=== PATIENT | male | born 1950 | race Caucasian/White ===

== ENCOUNTER 2016-05-14 05:36 | Day surgery (SDC) | payer MEDICARE, OTHER ==
[~2016-05-14] VITALS: Ht 170.2 cm; Wt 85.1 kg
[2016-05-14] VITALS (9 sets, daily range): BP systolic 112–152; BP diastolic 66–82; PULSE 51–80; RESP 12–17; O2SAT 95–99
[2016-05-14] MEDS: Lactated Ringer's 1,000 ML IV SCH ×2 (05:33→07:26)
[~2016-05-14 05:36] MED LIST: LEVO88TA4 PO
[2016-05-14] MEDS ORDERED: EPHEDrine/NS 5 mg/mL 5 mL Syringe ONE (05:37)
[2016-05-14] MEDS ORDERED: Ondansetron 2 mg/mL 2 mL Inj ONE (05:37)
[2016-05-14] MEDS ORDERED: Propofol 10,000 mCg/mL 20 mL Inj ONE (05:37)
[2016-05-14] MEDS ORDERED: HYDROmorphone 2 mg/mL Inj ONE (05:37)
[2016-05-14] MEDS ORDERED: Phenylephrine 10,000 mCg/mL Inj ONE (05:37)
[2016-05-14] MEDS ORDERED: Lidocaine PF 1% 30 mL Inj ONE (05:37)
[2016-05-14] MEDS ORDERED: Levofloxacin 500 mg/100 mL D5W IV ONE (06:00)
[2016-05-14] MEDS ORDERED: Lactated Ringer's 500 ML IV PRN (06:58)
[2016-05-14] MEDS ORDERED: Lactated Ringer's 1,000 ML IV SCH (06:58)
[2016-05-14] MEDS ORDERED: Phenylephrine 10,000 mCg/mL Inj IVPUSH PRN (07:00)
[2016-05-14] MEDS ORDERED: EPHEDrine Sulfate 50 mg/mL Inj IVPUSH PRN (07:00)
[2016-05-14] MEDS ORDERED: Atropine 0.4 mg/mL Inj IVPUSH PRN (07:00)
[2016-05-14] MEDS ORDERED: Labetalol 5 mg/mL 4 mL Inj IV PRN (07:00)
[2016-05-14] MEDS ORDERED: Dexamethasone 4 mg/mL Inj IVPUSH PRN (07:00)
[2016-05-14] MEDS ORDERED: Ondansetron 2 mg/mL 2 mL Inj IVPUSH PRN (07:00)
[2016-05-14] MEDS ORDERED: MetoCLOpramide 5 mg/mL 2 mL Inj IVPUSH PRN (07:00)
[2016-05-14] MEDS ORDERED: hydrALAZINE 20 mg/mL Inj IVPUSH PRN (07:00)
[2016-05-14] MEDS ORDERED: HYDROmorphone 1 mg/mL Inj IVPUSH PRN (07:00)
--- NOTE | 2016-05-14 07:02 | PCM.HPANE ---
Patient Data Date of Service: May 14, 2016 Surgeon Admitting Provider: Attending Provider:Amy Ba MD Primary Care Physician:Abelardo Vuong DO Other Provider:Gracie Todd Anesthesia Reason for Visit Bph With Urinary Obstruction, Urethral Stricture Ht/WT & BMI Height (Feet): 5 Height (Inches): 7.00 Weight (Kilograms): 85.1 Body Mass Index 29.00 Allergies Coded Allergies: fentanyl (Verified Allergy, Unknown, Rash, 05/12/16) meperidine (Verified Allergy, Unknown, unknown, 05/12/16) propofol (Verified Adverse Reaction, Severe, drop in blood pressure, ) Uncoded Allergies: MIDAZOLAM HCL (Generic Allergy) (Adverse Reaction, Severe, drop in blood pressure, 05/12/16) Past Anesthesia History Anesthesia History: Denies:: Abnormal Airway, Anesthesia Reactions, Difficult Intubation, Fam Anesthesia Reaction, Fam Malignant Hypertherm, Malignant Hyperthermia Diabetes History Hx Diabetes?: No MRSA MRSA: No Medications Hypertension Medication: No Home Meds Incl Beta Quique: No Reported Medications Levothyroxine 88 Mcg [id number] Mcg PO DAILY Ref 0 05/12/16 History History of ENT Problems?: Yes HEENT History: Positive for:: Dysphagia Denies:: Abnormal Airway Difficult Intubation Hearing Problem Denture Type: Full- Upper Full- Lower Other HEENT Pertinent History: S/P TONSILLECTOMY, ORAL (DENTAL) SURGERY Hx of Heart Problems?: Yes Cardiovascular History: Positive for:: Chest Pain (02/2007 POSS R/T GERD/ ESOPHAGEAL SPASM) Denies:: AICD Atrial Fibrillation Heart Murmur Hypertension Valvular Heart Disease Hx of Respiratory Problem?: Yes Respiratory History: Positive for:: Pneumonia (ONCE YEARS AGO) Denies:: Asthma COPD Cough Hemoptysis Tuberculosis Use of C-PAP Machine Hx Neurologic Problems?: No Neurological History: Denies:: CVA Dementia Hx of GI Problems?: Yes Gastrointestinal History: Positive for:: Gastroesphageal Reflux (None for last 6-7 years) Rectal Bleeding (GI BLEED IN 1996) Denies:: Cirrhosis Diverticulitis Hiatal Hernia Other GI Pertinent History: S/P HERNIA RPR Hx of Problems?: Yes Other Pertinent History: C/OF LUTS-DECREASED STREAM,FREQUENCY,NOCTURIA, RETENTION S/P URETHROTOMY FOR RECURRENT STRICTURE Male Hx: Positive for:: Prostate Problems (BPH/URINARY OBSTRUCTION/URETHRAL STRICTURE=CURRENT PROBLEM) Denies:: Scrotal Mass Testicular Surgery Skin History: Denies:: History Skin Disorders? Pressure Ulcers Hx Musculoskeletal Problems?: Yes Musculoskeletal History: Positive for:: Musculoskeletal Trauma (S/P LT KNEE MENISECTOMY HX OF RT KNEE MENISCAL TEAR TX MEDICALLY) Osteoarthritis (KNEES) Denies:: Back Injury (C/OF LOWER BACK PAIN) Joint Replacement Hx of Psycho/Social Problems?: No Psycho Social History: Denies:: Anxiety Hx Depression Hx Surgeries?: Yes (LT KNEE SCOPE,TONSILS,HERNIA RPR,URETHROTOMY,ORAL SURGERY) Hx Any Other Health Problems?: Yes Other History: Positive for:: Thyroid Disease Denies:: Cancer Endocrine Disease Hospitalization Hx Diabetes: No Hx Alcohol Use: NoHx Substance Use: No Smoking Status: Former Smoker Have You Smoked inLast 12 mo: No Stop/Bang Treated for Sleep Apnea?: No Do You Have a CPAP Machine?: No S-Snoring: Do You Snore Loudly: No T-Tired: feel tired, fatigued: No O-Obsered: Observed not breath: No P-Blood Pressure: treated: No B- Body Mass Index > 35 kg/m2: No A- Age over 50: Yes N- Neck Large Circumference: No G- Gender Male: Yes MEY Total Score: 2 MEY Risk Assessment: Low Risk, <3 Yes Risk Assessment Category Category 1A: Patient has history of documented sleep apnea, and HAS NOT received any narcotic, sedative or anesthesia administration during this stay. Category 1B: Patient has history of documented sleep apnea, and HAS received any narcotic , sedative or anesthesia administration during this stay Category 2: Patient has SUSPECTED Obstructive Sleep Apnea, and HAS received any narcotic , sedative or anesthesia administration during this stay. Category 3: Patient has SUSPECTED Obstructive Sleep Apnea and HAS NOT received narcotic, sedative or anesthesia administration during this stay. Category 4: Outpatient in Procedural Areas with known sleep apnea or who screen positive for High Risk via the STOP/BANG questionnaire. Exam Exam Vital Signs Vital Signs Date Time Temp Pulse Resp B/P Pulse Ox O2 Delivery O2 Flow Rate FiO2 05/14/16 06:04 36.8 80 16 152/82 98 Room Air General Appearance: Alert, Oriented X3, Cooperative HEENT/AIRWAY: Mouth Opening (Wide, upper and lower dentures) Lungs: Clear to Auscultation, Clear to Percussion, Normal Air Movement Heart: Regular Rate/Rhythm, Normal S1, Normal S2 Meds/Labs/Diagnostics Admission Meds Current Medications Lactated Ringer's (Lr) 1,000 ml @ 120 mls/hr Q8H20M IV Last administered on t 05:33; Start 05/14/16 at 05:00; Stop 05/14/16 at 13:19 Labs outside labs reviewed Plan Impression Patient chart reviewed, patient interviewed and anesthestic plan with risks, benefits, and alternatives discussed, and informed consent obtained. NPO Status: 05/13 at 2130 ASA Physical Status: ASA2 Mod Systemic Disease Anesthetic Plan: GA Bene/Risks/Altern/Consents: Yes HP Complete Prior to Induction: Yes Prieto Huynh MD May 14, 2016 06:48
[2016-05-14] MEDS ORDERED: Belladonna Alk-Opium 60 mg Rectal Suppository RECTAL ONE ×2 (08:34→08:36)
[2016-05-14] MEDS ORDERED: HYDROcodone-APAP 5-325 mg Tablet PO PRN (08:45)
[2016-05-14] MEDS ORDERED: Ondansetron 8 mg ODT Tablet PO PRN (08:45)
--- NOTE | 2016-05-14 08:53 | PCM.ANEP1 ---
Post Anesthesia Phase 1 PACU Phase 1 Assessment Date of Service: May 14, 2016 Vital Signs Vital Signs Date Time Temp Pulse Resp B/P Pulse Ox O2 Delivery O2 Flow Rate FiO2 05/14/16 08:50 71 17 116/73 99 Simple Mask 10 05/14/16 08:43 37.1 73 14 125/66 99 Simple Mask 10 05/14/16 06:04 36.8 80 16 152/82 98 Room Air Anesthetic Administered: GA Level of Alertness: Awake, talking BETTS's with Equal Strength: Yes Pain: No Nausea or Vomiting: No Oxygen Delivery: Simple Mask Lungs: Normal Air Movement Prieto Huynh MD May 14, 2016 08:53
--- NOTE | 2016-05-14 10:12 | PCM.ANEP2 ---
Post Anesthesia Evaluation ASA/CMS Post Anesthesia Date of Service: May 14, 2016 VS in Patient's Normal Range?: Yes Resp Stable; Airway Patent?: Yes CV Function & Hydration Stable: Yes Mental Status Recovered?: Yes Pain control Satisfactory?: Yes N/V Control Satisfactory?: Yes Prieto Huynh MD May 14, 2016 10:12
--- NOTE | 2016-05-15 20:26 | OP ---
[address] [address] OPERATIVE REPORT PATIENT: LUIS ATKINS : 1950 MR#: [id number] ADMIT: 05/14/2016 JOB ID: [id number] DATE OF SURGERY: 05/14/2016 PROCEDURES: 1 Transurethral resection of prostate and 2 direct visual internal urethrotomy. SURGEON: Amy Ba MD. ANESTHESIA: General. PREOPERATIVE DIAGNOSIS(ES): Urinary retention with benign prostatic hyperplasia and urethral stricture. POSTOPERATIVE DIAGNOSIS(ES): Urinary retention with benign prostatic hyperplasia and urethral stricture. INDICATIONS: The patient is a 65-year-old gentleman with longstanding history of bulbar urethral stricture. Also some age-related BPH with retention of urine, difficulty emptying the bladder. Taken to the OR for elective DVIU and TURP. PROCEDURE IN DETAIL: After appropriate informed consent was obtained, patient was brought to the operating room. Received IV antibiotics. SCDs were placed. Adequate general anesthesia was induced. She was carefully placed in dorsal lithotomy position. All pressure points carefully padded. Cleaned, prepped, and draped usual sterile fashion. Rigid scope was introduced into the bladder. The bulbar urethral stricture was identified. Scope could not be passed beyond this point. A wire was passed through the stricture and left in place. The cold knife was used to open this up large enough to nicely allow for passage of the 26-Syriac sheath. There was some mild bleeding with this incision area with obvious old scar tissue. We then used the Olympus resectoscope with the visual obturator to follow the guidewire up into the patient's bladder. Guidewire itself was removed and we proceeded with the transurethral resection of prostate. Prostate was initially resected with the cutting loop with the Olympus Thunderbeat system for bipolar ablation and cutting. The prostate was debulked, taking great care not to pass the area of the verumontanum and the sphincter. Once the initial portion of the prostate had been debulked, we switched over to the button implement and used this to ablate the remainder of the tissue with excellent hemostasis with the bipolar cautery. The patient tolerated the procedure very well. A 22-Syriac Browning catheter was placed with ease at the termination of the case. Hemostasis was excellent. The urine was quite clear, very light pink. Left to gravity drainage. He was awakened, taken in stable condition to the postanesthesia care unit. JEANNE
--- NOTE | 2016-05-17 14:25 | PATH ---
SURGICAL PATHOLOGY Attending Physician:Amy Ba MD CASE STATUS: Signed Out PATIENT NAME: LUIS ATKINS PID: [id number] : 1950 DATE COLLECTED:05/14/2016 23:12 SPECIMEN: Prostate, Chips CLINICAL HISTORY: BENIGN PROSTATIC HYPERPLASIA WITH URINARY OBSTRUCTION 1). RESECTED PROSTATE FINAL DIAGNOSIS: 1.PROSTATE CHIPS (TRANSURETHRAL RESECTION, 2.7 GRAMS): NODULAR STROMAL HYPERPLASIA, NEGATIVE FOR ATYPIA AND MALIGNANCY. ICD10 CODE N40.1 GROSS DESCRIPTION: The specimen is received in formalin, labeled with the patient's name, sublabeled as resected prostate, and consists of multiple fragments of webb-white rubbery prostatic tissue (2.7 g, 3.5 x 3.2 x 0.5 cm in aggregate). 3 orange smooth shiny round hard calculi (each approximately 0.2 cm) are identified. Section code: (A, B) prostatic tissue, entirely submitted. Note: The calculi are not submitted for histological analysis. 05/15/16 JM MICRO DESCRIPTION: See diagnosis. ICD-9 CODES: CPT CODES: 1: 78418 Electronically Signed Out Richard Nichlos MD [facility] [address], [place] [address] Technical component performed at [facility], [facility] [address], [place], [address]
== END 2016-05-14 23:59 | disposition home or self-care (01) ==
LOC: SAS 05:36
PROVIDERS: ATTEND Urology
DX: N40.1 Benign prostatic hyperplasia with lower urinary tract symptoms (principal); N35.9 Urethral stricture, unspecified; R33.9 Retention of urine, unspecified; E03.9 Hypothyroidism, unspecified; Z87.891 Personal history of nicotine dependence; Z77.22 Contact with and (suspected) exposure to environmental tobacco smoke (acute) (chronic)
CPT/HCPCS: 52601; 88305; J1170; J2370; J2405; J7120